=== PATIENT | male | born 1975 | race American Indian/Alaskan Native ===

== ENCOUNTER 2019-03-27 11:10 | Emergency (ER) | payer SELFPAY ==
--- NOTE | 2019-03-27 11:21 | Event Note ---
ED Screening Note Date of service: 03/27/19 Time: 11:18 ED Screening Note: 43 y old male presents to ed with right sided back pain that started this am admits n denies all other sx This initial assessment/diagnostic orders/clinical plan/treatment(s) is/are subject to change based on patients health status, clinical progression and re- assessment by fellow clinical providers in the ED. Further treatment and workup at subsequent clinical providers discretion. Patient/guardian urged not to elope from the ED as their condition may be serious if not clinically assessed and managed. Initial orders include: ua,cbc,cmp CT scan?? if needed
[2019-03-27 11:45] LABS: Basophils # (Auto) 0.1 K/mm3 (0.0-0.1); Basophils % (Auto) 1.3 % (0.0-1.8); Eosinophils % (Auto) 0.7 % (0.0-4.3); Hematocrit 42.2 % (35.5-45.6); Hemoglobin 13.6 gm/dl (11.8-15.2); Lymphocytes # (Auto) 2.3 K/mm3 (1.2-5.4); Lymphocytes % (Auto) 35.2 % (13.4-35.0); Mean Corpuscular HGB Conc 32 % (32-34); Mean Corpuscular Volume 85 fl (84-94); Monocytes # (Auto) 0.6 K/mm3 (0.0-0.8); Monocytes % (Auto) 9.6 % (0.0-7.3); Platelet Count 322 K/mm3 (140-440); Red Blood Count 4.95 M/mm3 (3.65-5.03); Red Cell Distribution Width 13.7 % (13.2-15.2)
[2019-03-27 12:03] LABS: Bilirubin,Urine NEG (Negative); Blood,Urine MOD (Negative); Color,Urine Yellow (Yellow); Mucus,Urine FEW /HPF; Protein,Urine <15 mg/dL mg/dL (Negative); Urobilinogen,Urine < 2.0 mg/dL (<2.0)
[2019-03-27 12:07] LABS: BUN/Creatinine Ratio 7; Blood Urea Nitrogen 8 mg/dL (9-20); Calcium 9.5 mg/dL (8.4-10.2); Hemolysis Index 7
[2019-03-27] MEDS ORDERED: MORPHINE IV ONE ×2 (12:55→18:17)
[2019-03-27] MEDS ORDERED: ZOFRAN IV ONE ×2 (12:55→18:17)
--- NOTE | 2019-03-27 13:42 | Emergency Department Report ---
<REJI PALMA - Last Filed: 03/27/19 18:48> ED General Adult HPI - General Chief complaint: Abdominal Pain Stated complaint: RIGHT FLANK PAIN/VOMIT Time Seen by Provider: 03/27/19 11:18 - Related Data Previous Rx's Medication Instructions Recorded Last Taken Type Tamsulosin [Flomax] 0.4 mg PO QDAY #10 cap 03/27/19 Unknown Rx traMADol [Ultram] 50 mg PO Q6HR PRN #12 tablet 03/27/19 Unknown Rx Allergies Allergy/AdvReac Type Severity Reaction Status Date / Time No Known Allergies Allergy Unverified 03/27/19 11:14 ED Past Medical Hx - Medications Home Medications: Home Medications Medication Instructions Recorded Confirmed Last Taken Type Tamsulosin [Flomax] 0.4 mg PO QDAY #10 cap 03/27/19 Unknown Rx traMADol [Ultram] 50 mg PO Q6HR PRN #12 tablet 03/27/19 Unknown Rx ED Medical Decision Making - Lab Data Result diagrams: 03/27/19 11:28 03/27/19 11:28 - Radiology Data Radiology results: report reviewed, image reviewed - Medical Decision Making Lab Results 03/27/19 03/27/19 03/27/19 Range/Units 11:28 11:28 Unknown WBC 6.6 (4.5-11.0) K/mm3 RBC 4.95 (3.65-5.03) M/mm3 Hgb 13.6 (11.8-15.2) gm/dl Hct 42.2 (35.5-45.6) % MCV 85 (84-94) fl MCH 28 (28-32) pg MCHC 32 (32-34) % RDW 13.7 (13.2-15.2) % Plt Count 322 (140-440) K/mm3 Lymph % (Auto) 35.2 H (13.4-35.0) % [place] % (Auto) 9.6 H (0.0-7.3) % Eos % (Auto) 0.7 (0.0-4.3) % Baso % (Auto) 1.3 (0.0-1.8) % Lymph # 2.3 (1.2-5.4) K/mm3 [place] # 0.6 (0.0-0.8) K/mm3 Eos # 0.0 (0.0-0.4) K/mm3 Baso # 0.1 (0.0-0.1) K/mm3 Seg Neutrophils % 53.2 (40.0-70.0) % Seg Neutrophils # 3.5 (1.8-7.7) K/mm3 Sodium 139 (137-145) mmol/L Potassium 4.0 (3.6-5.0) mmol/L Chloride 98.3 (98-107) mmol/L Carbon Dioxide 28 (22-30) mmol/L Anion Gap 17 mmol/L BUN 8 L (9-20) mg/dL Creatinine 1.1 (0.8-1.5) mg/dL Estimated GFR > 60 ml/min BUN/Creatinine Ratio 7 % Glucose 94 (75-100) mg/dL Calcium 9.5 (8.4-10.2) mg/dL Urine Color Yellow (Yellow) Urine Turbidity Clear (Clear) Urine pH 6.0 (5.0-7.0) Ur Specific [place] 1.013 (1.003-1.030) Urine Protein <15 mg/dl (Negative) mg/dL Urine Glucose (UA) Neg (Negative) mg/dL Urine Ketones Neg (Negative) mg/dL Urine Blood Mod (Negative) Urine Nitrite Neg (Negative) Urine Bilirubin Neg (Negative) Urine Urobilinogen < 2.0 (<2.0) mg/dL Ur Leukocyte Esterase Neg (Negative) Urine WBC (Auto) 1.0 (0.0-6.0) /HPF Urine RBC (Auto) 55.0 (0.0-6.0) /HPF Urine Mucus Few /HPF Vital Signs 03/27/19 11:17 Temperature 97.9 F Pulse Rate 80 Respiratory 18 Rate Blood Pressure 167/93 O2 Sat by Pulse 100 Oximetry UA NOTED LABS NOTED CT NOTED MILD HYDRO CR 1.1 NO INFECTION 1L NS/ZOFRAN/ PAIN MEDICATION TAKING PO DC HOME WITH URO FOLLOW UP - Differential Diagnosis RO UTI/ K STONE ED Disposition Clinical Impression: Kidney stone, Hydronephrosis Disposition: DC-01 TO HOME OR SELFCARE Is pt being admited?: No Does the pt Need Aspirin: No Condition: Stable Instructions: Kidney Stones (ED) Additional Instructions: DRINK A LOT OF WATER MEDS ORDERED TODAY STRAIN URINE FOLLOW UP WITH UROLOGY SHARRI CR IS 1.1 THEY NEED TO RECHECK YOUR KIDNEY FUNCTION Prescriptions: Tamsulosin [Flomax] 0.4 mg PO QDAY #10 cap traMADol [Ultram] 50 mg PO Q6HR PRN #12 tablet PRN Reason: Pain Referrals: CASE KYLE MD [Staff Physician] - 3-5 Days Time of Disposition: 18:50 <TANMAY SHEIKH - Last Filed: 03/28/19 16:17> ED General Adult HPI - General Source: patient Mode of arrival: Ambulatory Limitations: No Limitations - History of Present Illness Initial comments: Patient presents to the emergency department with a chief complaint of right flank pain that radiates into the rlq. She states the symptoms started this morning at approximately 7 AM feels like previous kidney stones he has had in the past. Patient denies any nausea or vomiting. -: Sudden Location: abdomen Radiation: abdomen Severity scale (0 -10): 6 Quality: aching Consistency: constant Improves with: none Worsens with: none Associated Symptoms: denies other symptoms Treatments Prior to Arrival: none ED Review of Systems ROS: Stated complaint: RIGHT FLANK PAIN/VOMIT Other details as noted in HPI Comment: All other systems reviewed and negative Constitutional: denies: chills, fever Eyes: denies: eye pain, eye discharge, vision change ENT: denies: ear pain, throat pain Respiratory: denies: cough, shortness of breath, wheezing Cardiovascular: denies: chest pain, palpitations Endocrine: no symptoms reported Gastrointestinal: abdominal pain. denies: nausea, diarrhea Genitourinary: denies: urgency, dysuria Musculoskeletal: denies: back pain, joint swelling, arthralgia Skin: denies: rash, lesions Neurological: denies: headache, weakness, paresthesias Psychiatric: denies: anxiety, depression Hematological/Lymphatic: denies: easy bleeding, easy bruising ED Past Medical Hx - Past Medical History Previous Medical History?: No - Surgical History Past Surgical History?: No - Social History Smoking Status: Never Smoker Substance Use Type: None ED Physical Exam - General Limitations: No Limitations General appearance: alert, in no apparent distress - Head Head exam: Present: atraumatic, normocephalic - Eye Eye exam: Present: normal appearance - ENT ENT exam: Present: mucous membranes moist - Neck Neck exam: Present: normal inspection - Respiratory Respiratory exam: Present: normal lung sounds bilaterally. Absent: respiratory distress - Cardiovascular Cardiovascular Exam: Present: regular rate, normal rhythm. Absent: systolic murmur, diastolic murmur, rubs, gallop - GI/Abdominal GI/Abdominal exam: Present: soft, normal bowel sounds. Absent: distended, tenderness - Rectal Rectal exam: Present: deferred - Extremities Exam Extremities exam: Present: normal inspection - Back Exam Back exam: Present: normal inspection - Neurological Exam Neurological exam: Present: alert, oriented X3, CN II-XII intact. Absent: motor sensory deficit - Psychiatric Psychiatric exam: Present: normal affect, normal mood - Skin Skin exam: Present: warm, dry, intact, normal color. Absent: rash ED Course Vital Signs 03/27/19 03/27/19 11:17 20:15 Temperature 97.9 F Pulse Rate 80 74 Respiratory 18 16 Rate Blood Pressure 167/93 Blood Pressure 168/84 [Left] O2 Sat by Pulse 100 100 Oximetry ED Medical Decision Making - Lab Data Result diagrams: 03/27/19 11:28 03/27/19 11:28 Critical care attestation.: If time is entered above; I have spent that time in minutes in the direct care of this critically ill patient, excluding procedure time. ED Disposition Is pt being admited?: No Does the pt Need Aspirin: No
--- NOTE | 2019-03-27 17:55 | Cat Scan Report ---
CT abdomen pelvis wo con INDICATION / CLINICAL INFORMATION: MAIN: right flank pain since about 10:30 this morning. TECHNIQUE: Axial CT imaging of abdomen and pelvis was obtained without contrast. Coronal and sagittal reformatte d imaging obtained and reviewed. All CT scans at this location are performed using CT dose reduction for ALARA by means of automated exposure control. COMPARISON: None available. FINDINGS: CT abdomen without contrast demonstrates normal appearance of the liver, spleen, pancreas, left kidne y, and adrenal glands. Gallbladder is unremarkable. There is mild right hydronephrosis caused by a 4 mm calculus in the distal right ureter at the UVJ. No additional calculi are seen within either kidne y. CT pelvis without contrast demonstrates normal appearance of the appendix. No pelvic mass, free fluid , or focal inflammatory changes noted. GI tract is within normal limits. Visualized lung bases are clear. No significant acute osseous abnormality. IMPRESSION: 1. Mild right hydronephrosis caused by a 4 mm calculus within the distal right ureter at the level of the UVJ. Signer Name: Sintia Vergara MD Signed: 03/27/2019 5:51 PM Workstation Name: [id number]
[2019-03-27] MEDS ORDERED: NACL 0.9% 1000 ML 1,000 ML IV ONE (18:17)
[2019-03-27 20:49] VITALS: BP 168/84
== END 2019-03-27 20:15 | disposition home or self-care (01) ==
LOC: ED 11:10 → EDBD 11:10 → ED 20:15
DX: N20.0 Calculus of kidney (principal); N13.30 Unspecified hydronephrosis
CPT/HCPCS: 36415; 74176; 80048; 81001; 85025; 96374; 96375; 96376; 99284; J2270; J2405; J7030